=== PATIENT | male | born 1965 | race Caucasian/White ===

== ENCOUNTER 2019-06-25 15:35 | Emergency (ER) | payer BC ==
[~2019-06-25] VITALS: Ht 152.4 cm; Wt 89.0 kg
[2019-06-25 15:39] VITALS: Ht 152.4 cm; Wt 89.0 kg
[2019-06-25] MEDS ORDERED: SOD CHLORIDE 0.9% 1,000 ML IV STA (19:06)
[2019-06-25] MEDS ORDERED: KETOROLAC 15 MG INJ IM STA (19:17)
[2019-06-25] MEDS ORDERED: KETOROLAC 15 MG INJ IV STA (19:21)
[2019-06-25 19:52] VITALS: BP 147/82; PULSE 68; RESP 18
== END 2019-06-25 19:50 | disposition home or self-care (01) ==
LOC: E/R 15:35
DX: R10.31 Right lower quadrant pain (principal); R40.2142 Coma scale, eyes open, spontaneous, at arrival to emergency department; R40.2362 Coma scale, best motor response, obeys commands, at arrival to emergency department; R40.2252 Coma scale, best verbal response, oriented, at arrival to emergency department; R10.32 Left lower quadrant pain
CPT/HCPCS: 36415; 74176; 80053; 81003; 83690; 85025; 96374; 99285; J1885; J7030